=== PATIENT | male | born 1975 | race Caucasian/White ===

== ENCOUNTER 2023-08-13 08:29 | Outpatient (AMB) | payer OTHER, SELFPAY ==
--- NOTE | 2023-08-13 08:33 | AM.OFFWIN_ITS ---
Intake Vital Signs 08/13/23 08:43 Weight 250 lb BP 110/72 Blood Pressure Location Lt brachial Position Sitting Pulse 69 Pulse Source Pulse Oximeter Temp 97.6 F Temp Source Temporal Artery Scan Pulse Oximetry (%) 96 Oxygen Delivery Method Room Air Intake Visit Reasons: [employer], cyst in buttocks([phone]) Intake Note: pt is here today for cyst in buttocks started 3 days ago Patient Tobacco Use Status: Never used Tobacco Allergies No Known Allergies Allergy (Verified 08/13/23 08:34) Medication List - Last Reconciled 08/13/23 by Dougie Castaneda MD cephalexin 500 mg PO BID Do you need a note to return to daycare/school/sports/work: Yes HPI [employer], cyst in buttocks([phone]) HPI Details 48-year-old male presents to the office for a sick visit. Patient is reporting a painful cyst in his buttocks. Last night it started draining. PFSH Social History Patient Tobacco Use Status: Never used Tobacco Physical Exam Vital Signs: Last Vital Signs Temp 97.6 F 08/13/23 08:43 Pulse 69 08/13/23 08:43 BP 110/72 08/13/23 08:43 Pulse Ox 96 08/13/23 08:43 Oxygen Delivery Method Room Air 08/13/23 08:43 Skin Other: Buttocks: Intergluteal cleft. 1 cm cystic lesion, nontender. Central opening minimal purulent discharge Assessment & Plan Assessment & Plan (1) Cellulitis of buttock: Code(s): L03.317 - Cellulitis of buttock Plan: Antibiotic called in. Suggested warm compress. Medications: New cephalexin 500 mg PO BID 14 caps 0RF Coding Level of Care Code Est Pt Level 3 (07770) Diagnoses Cellulitis of buttock L03.317
[2023-08-13 08:43] VITALS: BP 110/72; PULSE 69; TEMP 36.4; O2SAT 96
== END 2023-08-13 09:49 | disposition home or self-care (01) ==
PROVIDERS: Visit Provider Internal Medicine
DX: L03.317 Cellulitis of buttock (principal)
CPT/HCPCS: 99213